=== PATIENT | female | born 1970 | race Caucasian/White ===

== ENCOUNTER 2017-11-29 19:38 | Emergency (ER) | payer MEDICAID ==
[~2017-11-29] VITALS: Ht 170.2 cm; Wt 62.0 kg
[~2017-11-29 19:38] MED LIST: ACET650T10 PR; CYCL5TAB PO; GABA300 PO; MUCI600T PO; NEUR100C PO; OXYC-360 PO; OXYCODONE PO; TAB-TAB PO
[2017-11-29 19:40] VITALS: BP 143/73; PULSE 74; RESP 16; TEMP 98.4; O2SAT 98
[2017-11-29] MEDS ORDERED: IBUPROFEN 800 MG TAB PO ONE (22:45)
--- NOTE | 2017-11-29 23:23 | RADRPT ---
EXAM DATE/TIME: 11/29/2017 22:56 [place] COMPARISON: No previous studies available for comparison. INDICATIONS : Abscess. MEDICAL HISTORY : Stroke. Chronic obstructive pulmonary disease. Neck pain. Coma. Kidney stones. Anxiety. SURGICAL HISTORY : Appendectomy. [place] teeth removed. Neck surgery. Ileostomy. Cervical surgery with halo placement . Tracheostomy. ENCOUNTER: Initial ACUITY: 1 week PAIN SCORE: 8/10 LOCATION: Right breast. FINDINGS: Multiple sonographic images of the right breast were performed with special attention to the 10:00 po sition 12 cm from the right nipple. There is an ill-defined solid-appearing mass in this location arabella suring 2.4 x 2.4 x 1.7 cm. Ultrasound-guided core biopsy/aspiration of this indeterminate lesion is r ecommended for tissue diagnosis. CONCLUSION: Ill-defined solid-appearing mass within the 10:00 position of the right breast 12 cm from the right n ipple measuring 2.4 x 2.4 x 1.7 cm. Ultrasound-guided core biopsy/aspiration of this indeterminate le emmy is recommended for tissue diagnosis. Inocencio Krause MD on November 29, 2017 at 23:18 Board Certified Radiologist. This report was verified electronically.
[2017-11-29] MEDS ORDERED: IBUP1TAB7 PO (23:36)
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
== END 2017-11-29 23:58 | disposition home or self-care (01) ==
LOC: NEPD 19:38
DX: N63.10 Unspecified lump in the right breast, unspecified quadrant (principal); F41.9 Anxiety disorder, unspecified; J44.9 Chronic obstructive pulmonary disease, unspecified; Z85.41 Personal history of malignant neoplasm of cervix uteri; Z86.73 Personal history of transient ischemic attack (TIA), and cerebral infarction without residual deficits; Z72.0 Tobacco use
CPT/HCPCS: 76642